=== PATIENT | female | born 1955 | race Caucasian/White ===

== ENCOUNTER 2020-04-04 12:57 | Outpatient (REF) | payer MEDICAID, SELFPAY ==
[2020-04-04 21:46] LABS: TSH (W/Ref FT4) 2.46 uIU/mL (0.36-3.74)
== END 2020-04-04 13:17 ==
LOC: NCHCN 12:57
PROVIDERS: PCP Family Medicine; Visit Provider Family Medicine
DX: R63.4 Abnormal weight loss (principal)
CPT/HCPCS: 84443

== ENCOUNTER 2021-10-26 11:16 | Outpatient (REF) | payer MEDICARE, MEDICAID, SELFPAY ==
[2021-10-26 16:59] LABS: BUN 13 mg/dL (7-18); Estimated GFR 55.47 (mL/min/1.73m2)
== END 2021-10-26 11:17 | disposition home or self-care (01) ==
LOC: NCHCN 11:16
PROVIDERS: PCP Family Medicine; Visit Provider Family Medicine
DX: R59.0 Localized enlarged lymph nodes (principal)
CPT/HCPCS: 84520; 82565

== ENCOUNTER 2021-11-18 14:41 | Outpatient (REF) | payer MEDICARE, MEDICAID, SELFPAY ==
[2021-11-18 21:49] LABS: LDH 354 U/L (81-234)
[2021-11-18 21:50] LABS: Abs Immature Grans 0.02 10^3/uL (0.0-0.06); Absolute Basophil Count 0.04 10^3/uL (0.0-0.2); Absolute Eosinophil Count 0.14 10^3/uL (0.0-0.7); Absolute Lymphocyte Count 0.84 10^3/uL (1.2-3.4); Absolute Monocyte Count 0.56 10^3/uL (0.1-0.8); Basophils % 0.6; Eosinophils % 1.9; HCT 46.7 % (36.0-46.0); HGB 15.3 g/dL (11.2-15.7); Immature Grans % 0.3; Lymphocytes % 11.7; MCH 32.1 pg (27.0-33.0); MCHC 32.8 % (32.0-36.0); MCV 97.9 fL (80-95); MPV 10.7 fL (8.0-11.0); Monocytes % 7.8; Neutrophils % 77.7; Nucleated RBC 0 %; Platelet Count 280 10^3/uL (130-400); RBC 4.77 10^6/uL (3.93-5.22); RDW 13.7 % (11.7-14.6); RDW-SD 49.9 fL
[2021-11-18 22:06] LABS: ALT 11 U/L (14-59); AST 14 U/L (15-37); Albumin 3.7 g/dL (3.4-5.0); Alkaline Phosphatase 71 U/L (46-116); Anion Gap 10.8 mmol/L (3-11); BUN 8 mg/dL (7-18); Bilirubin, Total 0.5 mg/dL (0.2-1.0); CO2 27.2 mmol/L (21.0-32.0); CREATININE 1.1 mg/dL (0.55-1.02); Calcium 8.6 mg/dL (8.5-10.1); Chloride 99 mmol/L (98-107); Estimated GFR 49.69 (mL/min/1.73m2); Glucose 130 mg/dL (74-106); Potassium 3.8 mmol/L (3.5-5.1); Sodium 137 mmol/L (136-145); Total Protein 6.8 g/dL (6.4-8.2)
== END 2021-11-18 14:42 | disposition home or self-care (01) ==
LOC: NCHCN 14:41
PROVIDERS: PCP Family Medicine; Visit Provider Family Medicine
DX: R22.2 Localized swelling, mass and lump, trunk (principal); R11.2 Nausea with vomiting, unspecified; R05.3 Chronic cough
CPT/HCPCS: 80053; 83615; 85025